=== PATIENT | male | born 1995 | race African-American/Black ===

== ENCOUNTER → 2016-08-16 | Day surgery (SDC) | payer OTHER ==
[~2016-08-16] MED LIST: BUPIVACAINE HCL PF 0.75% 30 ML VIAL ONE; DOXY100T OR; FLUMAZENIL 1 MG/10 ML VIAL IV ONE; GENTAMICIN SULFATE (DIALYSIS USE ONLY) 20 MG/2 ML VIAL ONE; GENTAMICIN SULFATE 80 MG/2 ML VIAL ONE; LIDOCAINE 1.5%/EPINEPHrine 1:200,000 PF SOLN 30 ML AMP ONE; MIDAZOLAM HCL 5 MG/ML VIAL (1 ML) ONE; ONDANSETRON HCL 4 MG/2 ML VIAL IV PUSH ONE; PROPOFOL 100 MG/10 ML INJ IV ONE; SODIUM CHLORIDE 0.9% 20 ML VIAL ONE; VANCOMYCIN HCL 1000 MG VIAL ONE; Z.0.NO CURRENT MEDS; ceFAZolin INJ 1,000 MG VIAL ONE
--- NOTE | 2016-08-16 16:19 | PD.OP ---
cc: Margarito De Jesus Jr., MD Operative Report Date of Surgery: Aug 16, 2016 Preoperative Diagnosis: Left scaphoid waist fracture Postoperative Diagnosis: Same Procedure: Open reduction internal fixation left scaphoid Anesthesia: Gen. Surgeon: Margarito De Jesus Extra Gang Supervisor(s): Staff Resident Surgeon: None Operation and Findings: INDICATION FOR PROCEDURE Patient was seen and evaluated preoperatively and found to have left closed displaced scaphoid waist fractrure. Disciussion of risk and benefits including nunion, avascular necrosis, bleeding, infection, injury to arteries, nerves, and blood vessels, weakness and numbness of hand, and tendon rupture. Informed consent was obtained. Patient received IV antibiotics prior to incision. Timeout procedure was performed. Operative extremity was prepped with alcohol followed by Hibiclens and draped usual sterile fashion and placed on an arm table. Patient position supine. A small percutaneous volar approach to the scaphoid was used. Sharp dissection taken down through the skin and subcutaneous tissue identifying branches of the radial artery and superficial sensory branch radial nerve. While maintaining the wrist ulnar deviated and extended, the fracture at the scaphoid waist was visualized under fluoroscopy. One K wires inserted in the proximal and then in the distal fragment of the scaphoid where use as joysticks to aid in reduction. After adequate induction, a guidewire was inserted retrograde fashion down the axis of the scaphoid from distal to proximal and confirmed by multiple C-arm radiograph views as well as live rotational views. An additional K wire was used to measure the length of the screw. Taking an additional 4 cm millimeter of the measured guidewire length, a headless lag screw was selected, measuring 24mm. The cannulated drill was used to overdrill the wire. The headless Lag screw was inserted over the wire carefully to ensure subchondral positioning. Placement of the screw was confirmed by live fluoroscopy. The wound was closed with 2-0 nylon at the skin. Sterile dressing was applied and the patient was placed in a well-padded thumb spica splint. There were no complications. Patient extubated and transferred to PACU in stable condition. POSTP-OP PLAN OF ACTIVITY Antibiotics:none postop Antiocoagulation: None Weight bearing status: NWB in splint. Dressing: Do not remove splints Dispo: expected discharge same day from PACU. Margarito De Jesus Jr., MD Aug 16, 2016 16:19
== END | disposition home or self-care (01) ==
LOC: ESDC 10:22
PROVIDERS: ATTEND Orthopaedic Surgery
DX: S62.002A Unspecified fracture of navicular [scaphoid] bone of left wrist, initial encounter for closed fracture (principal)
CPT/HCPCS: 01830; 25628; 64450; 73120; 76000; C1713; J0690; J2250; J2405; J1580; J3370